=== PATIENT | male | born 1950 | race Caucasian/White ===

== ENCOUNTER 2017-09-06 11:24 | Emergency (ER) | payer OTHER ==
[~2017-09-06] VITALS: Ht 180.3 cm; Wt 86.2 kg
[2017-09-06 11:25] VITALS: BP_SYST 116
[2017-09-06] MEDS ORDERED: LIDOCAINE/EPI 1% 1:100000 20 ML VIAL INJ ONE ×2 (12:41→13:00)
[2017-09-06] MEDS ORDERED: DIPH-TET-PERTUS Vaccine 0.5 ML VIAL (ADACEL) I.M. ONE (13:00)
[2017-09-06 13:24] VITALS: BP_SYST 120
== END 2017-09-06 13:24 | disposition home or self-care (01) ==
LOC: SED 11:24
DX: S81.011A Laceration without foreign body, right knee, initial encounter (principal); S50.811A Abrasion of right forearm, initial encounter; V87.8XXA Person injured in other specified noncollision transport accidents involving motor vehicle (traffic), initial encounter; Y93.55 Activity, bike riding; Y92.411 Interstate highway as the place of occurrence of the external cause; Y99.8 Other external cause status
CPT/HCPCS: 73564; 90715; 99284